=== PATIENT | male | born 1980 | race American Indian/Alaskan Native ===

== ENCOUNTER 2018-01-27 16:25 | Emergency (ER) | payer OTHER ==
[2018-01-27 16:34] VITALS: BP 141/89; PULSE 121; RESP 16; TEMP 97.8; O2SAT 98
[2018-01-27 18:22] LABS: BARBITURATES, UR NEGATIVE (NEGATIVE); BENZODIAZEPINES, UR POSITIVE (NEGATIVE); OPIATES, UR NEGATIVE (NEGATIVE); PHENCYCLIDINE, UR NEGATIVE (NEGATIVE)
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
== END 2018-01-27 18:17 | disposition left against medical advice (07) ==
LOC: H.ER 16:25
DX: S00.83XA Contusion of other part of head, initial encounter (principal); E11.9 Type 2 diabetes mellitus without complications; F17.210 Nicotine dependence, cigarettes, uncomplicated; F31.9 Bipolar disorder, unspecified; Z79.4 Long term (current) use of insulin; V49.9XXA Car occupant (driver) (passenger) injured in unspecified traffic accident, initial encounter; Z00.8 Encounter for other general examination; Z86.59 Personal history of other mental and behavioral disorders